=== PATIENT | male | born 1960 | race Caucasian/White ===

== ENCOUNTER → 2017-06-15 | Outpatient (CLI) | payer OTHER ==
[~2017-06-15] VITALS: Ht 167.6 cm; Wt 79.4 kg
[~2017-06-15] MED LIST: CELEXA20 MG PO; CRESTOR20 MG PO; LISINOPRIL20 MG PO; NEXIUM40 MG PO; OXAZEPAM 15 MG15 M1 PO; VITAMIN B-12500 MCG PO
--- NOTE | ~2017-06-15 | P ---
[facility] [place] [address] PROCEDURE REPORT Name: CELESTINO ARCOS Room #: REG [facility].#: [id number] Admission: 06/15/17 Attend Phys: Sal Fuentes MD Discharge: Date of : 56 Report #: [id number] THIS REPORT FOR: //name// CC: Sal Pacheco MD BRIEF HISTORY: The patient is a 56-year-old male with a history of colon polyps. PREOPERATIVE DIAGNOSIS: History of colon polyps. POSTOPERATIVE DIAGNOSIS: Very early sigmoid diverticulosis coli. MEDICATIONS: Deep sedation with propofol per anesthesia. SPECIMEN: None. ESTIMATED BLOOD LOSS: None. PROCEDURE: Colonoscopy to cecum and terminal ileum. FINDINGS: Prior to propofol sedation, the procedure of colonoscopy was discussed with the patient as well as potential risks, benefits, and complications. He indicates he understands and desires to proceed. With the patient in left lateral decubitus position, digital examination was completed, which revealed no abnormalities. Subsequently, the [employer] video colonoscope was introduced into the rectum and advanced under direct vision to the cecum. Done with minimal difficulty. The cecum was identified by the ileocecal valve and the appendiceal orifice. I was able to visualize the distal segment of terminal ileum, which was inspected and noted to be unremarkable. At that point, the scope was slowly withdrawn and careful circumferential views were obtained. Upon slow withdrawal of the scope, the prep was noted to be excellent. The mucosa was within normal limits, normal vascular pattern, and normal light reflex. No neoplastic lesion was seen at anytime during this examination. As the scope was withdrawn through the sigmoid colon, very early diverticular disease was seen without evidence of diverticulitis. The scope was withdrawn in the rectum and upon retroflexion, no abnormalities were seen. Scope was withdrawn. The patient tolerated the procedure well. CONDITION OF THE PATIENT UPON DISCHARGE: Following procedure, the patient drowsy, arousable, and conversant and will be discharged to home when fully ambulatory. INSTRUCTIONS TO THE PATIENT AND FAMILY AT THE TIME OF DISCHARGE: No neoplastic lesions were seen on today's exam. His last exam was more than 5 years ago[address] [address] PROCEDURE REPORT Name: CELESTINO ARCOS Room #: REG [facility]#: [id number] Admission: 06/15/17 Attend Phys: Sal Fuentes MD Discharge: Date of : 56 Report #: [id number] Therefore, we would suggest he return in 10 years for a followup colonoscopy. I did suggest a high fiber diet due to the early diverticular disease. Last colonoscopy was more than 5 years ago. Withdrawal time from cecum was 9 minutes 26 seconds. <ELECTRONICALLY SIGNED> By: Sal Fuentes MD 06/19/17 1639 1055 1749 Sal Fuentes MD /nt
--- NOTE | ~2017-06-15 | P ---
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 He has had adenomas of the duodenum treated on several occasions in the past. In addition, he has reflux disease and family history of esophageal cancer. PREOPERATIVE DIAGNOSES: History of duodenal adenomas and reflux disease. POSTOPERATIVE DIAGNOSES: History of duodenal adenomas and reflux disease. MEDICATIONS: Deep sedation with propofol per anesthesia. SPECIMEN: Biopsies of GE junction, rule out Black. ESTIMATED BLOOD LOSS: 3 mL. PROCEDURE: EGD with biopsy. FINDINGS: Prior to propofol sedation, the procedure of upper endoscopy was discussed with the patient as well as potential risks, benefits, and complications. He indicates he understands and desires to proceed. With the patient in left lateral decubitus position, the [employer] video endoscope was inserted in the cervical esophagus under direct vision without difficulty. Examination of this organ through its entire length revealed normal esophageal mucosa in the proximal esophagus. Distally, the esophageal mucosa was intact without evidence of ulceration or obvious Black mucosa. However, the squamocolumnar junction was somewhat irregular. I did not see evidence of esophagitis. There were a couple of very small islands of gastric type mucosa just above the squamocolumnar junction. A definite Black was not seen, but due to the irregular squamocolumnar junction, his family history, multiple biopsies were obtained of the islands of gastric type mucosa as well as irregular squamocolumnar junction. The scope was advanced in the stomach, which was examined on end view as well as retroflexed views. The stomach was normal with normal mucosa. No ulcers or evidence of outlet obstruction. Upon retroflexion, no mass lesions were seen. A hiatus hernia was not seen today. Pylorus, normal. Duodenal bulb was normal. The region of the duodenal papilla was normal and no polypoid lesions were seen. The scope was advanced deeply into the duodenum, I believe just beyond the ligament of Treitz. Upon slow withdrawal of the scope, the mucosa and the folds were normal. No duodenal adenomas or polypoid lesions were seen today. At that point, the scope was [facility] [address] [place] [address] PROCEDURE REPORT Name: CELESTINO ARCOS Room #: REG [facility].#: [id number] Admission: 06/15/17 Attend Phys: Sal Fuentes MD Discharge: Date of : 56 Report #: [id number] slowly withdrawn and careful circumferential views confirmed the above findings. The patient tolerated the procedure well. CONDITION OF THE PATIENT UPON DISCHARGE: Following the procedure, the patient drowsy and prepared for colonoscopy. INSTRUCTIONS TO THE PATIENT AND FAMILY AT THE TIME OF DISCHARGE: I do not see evidence of duodenal adenomas on today's exam. We will give consideration to followup EGD possibly 5 years to examine the duodenum. We will follow up on biopsy of the esophagus and make further recommendations. He should continue his proton pump therapy for reflux disease. <ELECTRONICALLY SIGNED> By: Sal Fuentes MD 06/19/17 1639 1035 1721 Sal Fuentes MD /nt
== END | disposition home or self-care (01) ==
LOC: GI 08:36
DX: Z12.11 Encounter for screening for malignant neoplasm of colon (principal); Z86.010 Personal history of colon polyps; K29.70 Gastritis, unspecified, without bleeding; K21.0 Gastro-esophageal reflux disease with esophagitis; K57.30 Diverticulosis of large intestine without perforation or abscess without bleeding; I10 Essential (primary) hypertension; E78.5 Hyperlipidemia, unspecified; G47.33 Obstructive sleep apnea (adult) (pediatric); F32.9 Major depressive disorder, single episode, unspecified; F41.9 Anxiety disorder, unspecified; Z79.899 Other long term (current) drug therapy; Z98.890 Other specified postprocedural states; Z80.0 Family history of malignant neoplasm of digestive organs; Z87.19 Personal history of other diseases of the digestive system
CPT/HCPCS: 43239; G0105; 62110; 62900

== ENCOUNTER → 2017-11-23 | Outpatient (CLI) | payer OTHER ==
[~2017-11-23] VITALS: Ht 170.2 cm; Wt 81.6 kg
[~2017-11-23] MED LIST changes: +OMEPRAZOLE40 MG PO; +TRAZODONE HCL50 MG PO
--- NOTE | ~2017-11-23 | PATH ---
[facility] [place] [address] PATHOLOGY RPT PROCEDURE Name: CELESTINO URIBE Room #: REG [facility].#: [id number] Admission: 11/23/17 Date of : 56 Discharge: Report #: [id number] Path Case #: [id number] [facility] Accession Number: [id number] . 01 Material submitted: . BX GE JUNCTION-F/U BIOPSIES, COMPARE TO PREVIOUS BX . 01 Clinical history: . Reflux, Hx Black's . 02 Diagnosis: "BX GE junction-F/U biopsies, compared to previous BX", biopsy: - Esophageal squamous mucosa and gastric cardiac type mucosa with mild reactive/regenerative changes and mild predominantly chronic inflammation; no intestinal metaplasia or dysplasia seen. (See comment) . (MAXIME:brian; 11/24/2017) MBLizandro/11/24/2017 . 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 The previous biopsy is reviewed and the focus of intestinal metaplasia is focal and small. The current biopsy shows no evidence of intestinal metaplasia. Clinical and endoscopic correlation is required. . 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 02 Electronically signed: . Odessa Arreguin MD, Pathologist NPI- [id number] . 01 Gross description: . Received in formalin labeled "Celestino Uribe, BX GE junction," are 5 segments of mcmullen soft tissue measuring 0.7 x 0.8 x 0 cm in aggregate dimensions and ranging from 0.3 to 0.5 cm in maximum dimension. The specimen is submitted entirely in cassette A1. (TSD; 11/23/2017) TOB/TOB . 02 Pathologist provided ICD-10: K20.8 . 02 CPT . 426482 [address] [address] PATHOLOGY RPT PROCEDURE Name: CELESTINO URIBE DEBORA Room #: REG [facility].#: [id number] Admission: 11/23/17 Date of : 56 Discharge: Report #: [id number] Path Case #: [id number] Specimen Comment: A courtesy copy of this report has been sent to Specimen Comment: [phone], . Specimen Comment: Report sent to / DR QUINTANILLA Performed at: 01 [facility] [address], [place], [place] [id number] MD Benny Acosta MD Phone: [phone] Performed at: [address] [id number] MD Leona Strong MD Phone: [phone]
--- NOTE | ~2017-11-23 | P ---
[facility] [place] [address] PROCEDURE REPORT Name: CELESTINO ARCOS [id number] Admission: 11/23/17 Attend Phys: Sal Fuentes MD Discharge: Date of : 56 Report #: [id number] THIS REPORT FOR: //name// CC: AMNA Pacheco BRIEF HISTORY: The patient is a 57-year-old male with recent diagnosis of Black's esophagus. In addition, the patient has had tubulovillous adenomas in the duodenum, which had been treated in the past. He also has a history of dysphagia. POSTOPERATIVE DIAGNOSES: 1. Short segment Black esophagus. 2. Small intermittently seen hiatus hernia. 3. Erythematous antral gastritis. MEDICATIONS: Deep sedation with propofol per anesthesia. SPECIMEN: Biopsies of GE junction, rule out Black. ESTIMATED BLOOD LOSS: 3 mL. PROCEDURE: EGD with biopsy. FINDINGS: Prior to propofol sedation, procedure of upper endoscopy and dilation were discussed with the patient as well as potential risks and its complications. He indicates he understands and desires to proceed. DESCRIPTION OF PROCEDURE: With the patient in left decubitus position, the Olympus video endoscope was inserted in the cervical esophagus under direct vision without difficulty. Examination of this organ through its entire length revealed normal esophageal mucosa down the squamocolumnar junction. Squamocolumnar junction was irregular. Previous biopsy revealed Black mucosa. He has less than 2 cm segment of Black mucosa. The mucosa was flat without ulcers, strictures or masses. In addition, intermittently, a small hiatus hernia of 1-2 cm was seen. He has also had dysphagia and no obvious strictures were seen. Scope was advanced in the stomach, was examined on end view as well as retroflexed views. There was an erythematous antral gastritis previously noted. Upon retroflexion, no mass lesions were seen. A large hiatus hernia was not seen. Pylorus, duodenal bulb and postbulbar sweep were inspected. He has had a history of adenomas in the duodenum. The scope was inserted and withdrawal multiple times through the duodenum and no mass lesions were seen. At that point, the scope was slowly withdrawn and careful circumferential views confirmed the above findings. The patient tolerated the procedure well. CONDITION OF THE PATIENT UPON DISCHARGE: Following procedure, the patient [address] [address] PROCEDURE REPORT Name: JOSSELYNCELESTINO DEBORA Room #: REG [facility].#: [id number] Admission: 11/23/17 Attend Phys: Sal Fuentes MD Discharge: Date of : 56 Report #: [id number] drowsy, will be discharged home when fully ambulatory. INSTRUCTIONS TO THE PATIENT AND FAMILY AT THE TIME OF DISCHARGE: He should continue his PPI therapy. Return for dilation on an as needed basis. We will follow up on biopsies obtained today. If there is no dysplasia, suggest a followup EGD in 3 years. He will return to care of Dr. Pacheco, return to see me as needed. <ELECTRONICALLY SIGNED> By: Sal Fuentes MD 11/24/17 1122 0804 26 Sal Fuentes MD /nt
== END | disposition home or self-care (01) ==
LOC: GI 06:40
DX: K29.50 Unspecified chronic gastritis without bleeding (principal); K22.70 Barrett's esophagus without dysplasia; K44.9 Diaphragmatic hernia without obstruction or gangrene; I10 Essential (primary) hypertension; E78.5 Hyperlipidemia, unspecified; F32.9 Major depressive disorder, single episode, unspecified; F41.9 Anxiety disorder, unspecified; G47.33 Obstructive sleep apnea (adult) (pediatric); Z98.890 Other specified postprocedural states; Z79.899 Other long term (current) drug therapy; Z87.19 Personal history of other diseases of the digestive system
CPT/HCPCS: 62110; 62900